=== PATIENT | female | born 1955 | race Caucasian/White ===

== ENCOUNTER 2019-05-30 07:37 | Inpatient (IN) | payer BC ==
[2019-05-30] MEDS ORDERED: Ondansetron 4 MG/2 ML SDV IVPUSH ONE (08:15)
[2019-05-30] MEDS ORDERED: Sodium Chloride 0.9% 1,000 ML IV SCH ×3 (08:15→10:45)
[2019-05-30] MEDS ORDERED: HYDROmorphone 0.5 MG/0.5 ML Syringe IVPUSH ONE ×2 (08:15→11:00)
--- NOTE | 2019-05-30 08:24 | EDM.PDOC ---
ED HPI GENERAL MEDICAL PROBLEM - General Chief Complaint: Abdominal Pain Stated Complaint: ABD PAIN Time Seen by Provider: 05/30/19 08:16 Source of Information: Reports: Patient History Limitations: Reports: No Limitations - History of Present Illness INITIAL COMMENTS - FREE TEXT/NARRATIVE: pt got sick in the nite . She vomited several times some very green looking material. Onset: Today, Other ( started in the middle of the nite. ) Duration: Hour(s): Location: Reports: Abdomen, Other ( severe upper abdomanal pain. ) Associated Symptoms: Reports: Headaches, Malaise, Nausea/Vomiting Upper Abdominal Pain Score (Numeric/FACES): 10 - Related Data Allergies Allergy/AdvReac Type Severity Reaction Status Date / Time No Known Allergies Allergy Verified 05/30/19 07:56 Past Medical History Gastrointestinal History: Reports: Other (See Below) Other Gastrointestinal History: abd pain Musculoskeletal History: Reports: Osteoporosis Neurological History: Reports: Migraines Social & Family History - Tobacco Use Smoking Status *Q: Never Smoker - Caffeine Use Caffeine Use: Reports: None ED ROS GENERAL - Review of Systems Review Of Systems: See Below Constitutional: Reports: Decreased Appetite HEENT: Reports: No Symptoms Respiratory: Reports: No Symptoms Cardiovascular: Reports: No Symptoms Endocrine: Reports: No Symptoms GI/Abdominal: Reports: Abdominal Pain, Nausea, Vomiting : Reports: No Symptoms Musculoskeletal: Reports: No Symptoms Neurological: Reports: Headache, Other (pt developed a migraine this am and she was not able to take her imitrex. ) Psychiatric: Reports: Anxiety Immunologic: Reports: No Symptoms ED EXAM, GI/ABD - Physical Exam Exam: See Below Text/Narrative:: pt arrived with pain in the upper abdoman of acute onset. At home she did vomit several times which was a dark green. Exam Limited By: No Limitations General Appearance: Alert, Anxious, Moderate Distress Ears: Normal TMs Nose: Normal Inspection Throat/Mouth: Normal Inspection Head: Atraumatic Neck: Normal Inspection Respiratory/Chest: No Respiratory Distress Cardiovascular: Regular Rate, Rhythm GI/Abdominal Exam: Other ( tender in the upper abdoman. ) (Female) Exam: Deferred Rectal (Female) Exam: Deferred Back Exam: Normal Inspection Extremities: Normal Inspection Neurological: Alert, Oriented, Normal Cognition Course - Vital Signs Last Recorded V/S: Last Vital Signs Temp 36.8 C 05/30/19 07:52 Pulse 81 05/30/19 07:52 Resp 20 05/30/19 07:52 BP 94/50 L 05/30/19 07:52 Pulse Ox - Orders/Labs/Meds Orders: Active Orders 24 hr Category Date Time Status UA W/MICROSCOPIC [URIN] Urgent Lab 05/30/19 07:54 Ordered Sodium Chloride 0.9% [Normal Saline] 1,000 ml Med 05/30/19 08:15 Active IV ASDIRECTED Sodium Chloride 0.9% [Normal Saline] 1,000 ml Med 05/30/19 09:00 Active IV ASDIRECTED Medication Orders Sodium Chloride (Normal Saline) 1,000 mls @ 999 mls/hr IV ASDIRECTED GIN Last Admin: 05/30/19 08:28 Dose: 999 mls/hr Sodium Chloride (Normal Saline) 1,000 mls @ 999 mls/hr IV ASDIRECTED GIN Last Admin: 05/30/19 09:45 Dose: 999 mls/hr Labs: Laboratory Tests 05/30/19 05/30/19 05/30/19 Range/Units 07:54 08:05 08:05 WBC 12.7 H (4.5-11.0) K/uL RBC 4.52 (3.30-5.50) M/uL Hgb 14.6 (12.0-15.0) g/dL Hct 44.4 (36.0-48.0) % MCV 98 (80-98) fL MCH 32 H (27-31) pg MCHC 33 (32-36) % Plt Count 302 (150-400) K/uL Neut % (Auto) 86 H (36-66) % Lymph % (Auto) 10 L (24-44) % [place] % (Auto) 4 (2-6) % Eos % (Auto) 0 L (2-4) % Baso % (Auto) 0 (0-1) % Sodium 134 L (140-148) mmol/L Potassium 4.0 (3.6-5.2) mmol/L Chloride 102 (100-108) mmol/L Carbon Dioxide 24 (21-32) mmol/L Anion Gap 12.0 (5.0-14.0) mmol/L BUN 31 H (7-18) mg/dL Creatinine 0.8 (0.6-1.0) mg/dL Est Cr Clr Drug Dosing 57.73 mL/min Estimated GFR (MDRD) > 60 (>60) Glucose 131 H (74-106) mg/dL Calcium 9.7 (8.5-10.1) mg/dL Total Bilirubin 0.3 (0.2-1.0) mg/dL AST 25 (15-37) U/L ALT 26 (12-78) U/L Alkaline Phosphatase 75 (46-116) U/L C-Reactive Protein 0.23 (0.0-0.3) mg/dL Total Protein 7.8 (6.4-8.2) g/dL Albumin 4.2 (3.4-5.0) g/dL Globulin 3.6 H (2.3-3.5) g/dL Albumin/Globulin Ratio 1.2 (1.2-2.2) Meds: Medications Generic Name Dose Route Start Last Admin Trade Name Cristin PRN Reason Stop Dose Admin Sodium Chloride 1,000 mls @ 999 mls/hr 05/30/19 08:15 05/30/19 08:28 Normal Saline IV 999 mls/hr ASDIRECTED GIN Administration Sodium Chloride 1,000 mls @ 999 mls/hr 05/30/19 09:00 05/30/19 09:45 Normal Saline IV 999 mls/hr ASDIRECTED GIN Administration Discontinued Medications Generic Name Dose Route Start Last Admin Trade Name Cristin PRN Reason Stop Dose Admin Hydromorphone HCl 0.5 mg 05/30/19 08:15 05/30/19 08:29 Dilaudid IVPUSH 05/30/19 08:16 0.5 mg ONETIME ONE Administration Sodium Chloride 70 mls @ 2 mls/sec 05/30/19 09:15 05/30/19 09:20 Normal Saline IV 05/30/19 09:16 2 mls/sec ASDIRECTED GIN Administration Iopamidol 72 ml 05/30/19 09:15 05/30/19 09:21 Isovue-300 (61%) IV 05/30/19 09:16 72 ml . DIRECTED GIN Administration Ondansetron HCl 4 mg 05/30/19 08:15 05/30/19 08:30 Zofran IVPUSH 05/30/19 08:16 4 mg ONETIME ONE Administration Sodium Chloride 10 ml 05/30/19 09:15 05/30/19 09:20 Saline Flush FLUSH 05/30/19 09:16 10 ml ONETIME GIN Administration - Re-Assessments/Exams Free Text/Narrative Re-Assessment/Exam: 05/30/19 09:46 wbc is mildly elevated. She has dilated loops of bowel with a partial bowel obstruction. Departure - Departure Time of Disposition: 09:56 Disposition: Home, Self-Care 01 Condition: Fair Clinical Impression: Partial bowel obstruction - Discharge Information Referrals: PCP,None [Primary Care Provider] - Forms: ED Department Discharge Care Plan Goals: admit to Dr Fregoso with a surgical consult with Dr ortiz. Sepsis Event Note - Evaluation Sepsis Screening Result: No Definite Risk - Focused Exam Vital Signs: Vital Signs Temp Pulse Resp BP 05/30/19 07:52 36.8 C 81 20 94/50 L Date Exam was Performed: 05/30/19 Time Exam was Performed: 10:10 - My Orders Last 24 Hours: My Active Orders 05/30/19 07:54 UA W/MICROSCOPIC [URIN] Urgent 05/30/19 08:15 Sodium Chloride 0.9% [Normal Saline] 1,000 ml IV ASDIRECTED 05/30/19 09:00 Sodium Chloride 0.9% [Normal Saline] 1,000 ml IV ASDIRECTED - Assessment/Plan Last 24 Hours: My Active Orders 05/30/19 07:54 UA W/MICROSCOPIC [URIN] Urgent 05/30/19 08:15 Sodium Chloride 0.9% [Normal Saline] 1,000 ml IV ASDIRECTED 05/30/19 09:00 Sodium Chloride 0.9% [Normal Saline] 1,000 ml IV ASDIRECTED
[2019-05-30] MEDS ORDERED: Iopamidol 612 MG/ML 100 ML Bottle IV SCH (09:15)
[2019-05-30] MEDS ORDERED: Sodium Chloride 0.9% 10 ML Syringe FLUSH SCH (09:15)
--- NOTE | 2019-05-30 09:58 | CT ---
Abdomen Pelvis w Cont CLINICAL HISTORY: Acute abdominal pain COMPARISON: None. TECHNIQUE: Axial tomographic images are obtained from the dome of the diaphragm to the pubic symphysis without IV contrast enhancement. No oral contrast was used. Auto dosage reduction and iterative reconstruction techniques employed. FINDINGS: The lung bases show some pleural parenchymal scarring and patchy atelectasis. The there is a 9 mm pleural-based nodular focus in the right posterior costophrenic angle. This may be part of what is described above. The solitary pulmonary nodule is not excluded.. The liver shows some mild intrahepatic biliary distention likely related to previous cholecystectomy. There is moderate to diffuse small bowel distention throughout the abdomen. There is a transition point seen in the left midabdomen. This is best demonstrated on coronal image #20. This is seen on axial images #64 through 76.. There is a small amount of free fluid in the pelvis. No free air is identified This appears to be in the distal jejunum The spleen has a normal size and shape. The pancreas shows no mass or inflammatory change. The adrenal glands appear normal bilaterally. The kidneys show no mass or hydronephrosis. There is a punctate nonobstructing stone in the lower pole of the right kidney. Ureters have normal course and caliber The aorta has a normal contour. There is no suspicious retroperitoneal adenopathy. Bladder has normal contour IMPRESSION: Moderate fluid-filled small bowel distention suggesting a high-grade obstruction. Transition point appears to be in the lower left midabdomen. Chronic changes in lung bases with a 9 mm pleural-based nodular focus in the right posterior costophrenic angle. CT chest follow-up on a nonemergent basis should be considered
--- NOTE | 2019-05-30 11:57 | PCM.HP.2 ---
H&P History of Present Illness - General Date of Service: 05/30/19 Admit Problem/Dx: Admission Diagnosis/Problem Admission Diagnosis/Problem Small bowel obstruction Source of Information: Patient, Provider History Limitations: Reports: No Limitations - History of Present Illness Initial Comments - Free Text/Narative: CC: I was hurting so bad HPI: Renetta presents to the emergency room today with progressive right-sided abdominal pain with nausea and vomiting. She reports onset of right-sided abdominal pain last night. There is a moderate ache that is present nearly constantly with sharp and severe wavelike episodes that radiate throughout the right side of her abdomen. She has had associated nausea and multiple episodes of vomiting which was green in color. No obvious trigger to make the pain worse but it has progressed throughout the night. She was not able to keep down any medications to try to make the pain better. She has not had any fevers. Nobody else had similar symptoms. Her bowel movements seem to alternate from constipation to diarrhea but this is unchanged from previous. She has a history of similar episodes but has not had one in quite some time. She does have mild abdominal pain essentially every day but this usually improves with her dicyclomine. She does not feel short of breath and has not had chest pain. No change in bladder habits. No recent travel or suspect food ingestions. For her chronic abdominal pain she has had an extensive work-up including a [facility] visit. She has had a cholecystectomy in the past. Her pain has been better for the last several years but still bothers her on a regular basis. Work-up in the emergency room revealed fairly normal labs. CT scan of the abdomen and pelvis was suggestive of a high-grade obstruction in the mid abdomen area. She is more comfortable after pain medications and fluids. She will be admitted for further management. Upper Abdominal Pain Score (Numeric/FACES): 7 - Related Data Allergies/Adverse Reactions: Allergies Allergy/AdvReac Type Severity Reaction Status Date / Time gluten Allergy Abdominal Verified 05/30/19 14:04 Pain onion Allergy Headache Verified 05/30/19 14:03 Home Medications: Home Meds Dicyclomine [Bentyl] 20 mg PO Q4H 05/30/19 [History] Fluticasone Furoate [Flonase Sensimist] 2 spray NASBOTH ASDIRECTED 05/30/19 [ History] Gabapentin [Neurontin] 300 mg PO BEDTIME 05/30/19 [History] Gabapentin [Neurontin] 600 mg PO DAILY 05/30/19 [History] QUEtiapine [SEROquel] 100 mg PO BEDTIME 05/30/19 [History] SUMAtriptan [Imitrex] 100 mg PO ASDIRECTED 05/30/19 [History] Past Medical History Gastrointestinal History: Reports: Other (See Below) Other Gastrointestinal History: abd pain Musculoskeletal History: Reports: Osteoporosis Neurological History: Reports: Migraines Social & Family History - Family History GI: Reports: Cholelithiasis. Denies: Bowel Obstruction - Tobacco Use Smoking Status *Q: Never Smoker - Caffeine Use Caffeine Use: Reports: None - Alcohol Use Alcohol Use History: No H&P Review of Systems - Review of Systems: Review Of Systems: See Below Free Text/Narrative: A complete 12 point review of systems was obtained. Pertinent positives and negatives are noted in the history of present illness. All other systems were reviewed and were negative except as noted. Exam - Exam Exam: See Below - Vital Signs Vital Signs: Last Vital Signs Temp 36.8 C 05/30/19 07:52 Pulse 81 05/30/19 07:52 Resp 20 05/30/19 07:52 BP 94/50 L 05/30/19 07:52 Pulse Ox Weight: 50.802 kg - Exam Quality Assessment: No: Supplemental Oxygen General: Alert, Oriented, Cooperative, Mild Distress HEENT: Conjunctiva Clear. No: Mucosa Moist & [place] (dry), Scleral Icterus Neck: Supple, Trachea Midline. No: Lymphadenopathy Lungs: Clear to Auscultation, Normal Respiratory Effort Cardiovascular: Regular Rate, Regular Rhythm GI/Abdominal Exam: Normal Bowel Sounds, Soft, No Distention, Guarding (LLQ), Tender (left side kaya LUQ) Extremities: Normal Inspection. No: Limited Range of Motion Peripheral Pulses: 2+: Dorsalis Pedis (L), Dorsalis Pedis (R) Skin: Warm, Dry Neuro Extensive - Mental Status: Alert, Oriented x3, Normal Mood/Affect Neuro Extensive - Motor, Sensory, Reflexes: No: Dysarthria, Abnormal Motor, Tremor Psychiatric: Alert, Normal Affect - Patient Data Lab Results Last 24 hrs: Laboratory Results - last 24 hr 05/30/19 05/30/19 05/30/19 Range/Units 07:54 08:05 08:05 WBC 12.7 H (4.5-11.0) K/uL RBC 4.52 (3.30-5.50) M/uL Hgb 14.6 (12.0-15.0) g/dL Hct 44.4 (36.0-48.0) % MCV 98 (80-98) fL MCH 32 H (27-31) pg MCHC 33 (32-36) % Plt Count 302 (150-400) K/uL Neut % (Auto) 86 H (36-66) % Lymph % (Auto) 10 L (24-44) % [place] % (Auto) 4 (2-6) % Eos % (Auto) 0 L (2-4) % Baso % (Auto) 0 (0-1) % Sodium 134 L (140-148) mmol/L Potassium 4.0 (3.6-5.2) mmol/L Chloride 102 (100-108) mmol/L Carbon Dioxide 24 (21-32) mmol/L Anion Gap 12.0 (5.0-14.0) mmol/L BUN 31 H (7-18) mg/dL Creatinine 0.8 (0.6-1.0) mg/dL Est Cr Clr Drug Dosing 57.73 mL/min Estimated GFR (MDRD) > 60 (>60) Glucose 131 H (74-106) mg/dL Calcium 9.7 (8.5-10.1) mg/dL Total Bilirubin 0.3 (0.2-1.0) mg/dL AST 25 (15-37) U/L ALT 26 (12-78) U/L Alkaline Phosphatase 75 (46-116) U/L C-Reactive Protein 0.23 (0.0-0.3) mg/dL Total Protein 7.8 (6.4-8.2) g/dL Albumin 4.2 (3.4-5.0) g/dL Globulin 3.6 H (2.3-3.5) g/dL Albumin/Globulin Ratio 1.2 (1.2-2.2) Urine Color (YELLOW) Urine Appearance (CLEAR) Urine pH (5.0-8.0) Ur Specific [place] (1.008-1.030) Urine Protein (NEGATIVE) mg/dL Urine Glucose (UA) (NEGATIVE) mg/dL Urine Ketones (NEGATIVE) mg/dL Urine Occult Blood (NEGATIVE) Urine Nitrite (NEGATIVE) Urine Bilirubin (NEGATIVE) Urine Urobilinogen (0.2-1.0) EU/dL Ur Leukocyte Esterase (NEGATIVE) Urine RBC (0-5) Urine WBC (0-5) Ur Epithelial Cells Amorphous Sediment Urine Bacteria Urine Mucus 05/30/19 Range/Units 10:38 WBC (4.5-11.0) K/uL RBC (3.30-5.50) M/uL Hgb (12.0-15.0) g/dL Hct (36.0-48.0) % MCV (80-98) fL MCH (27-31) pg MCHC (32-36) % Plt Count (150-400) K/uL Neut % (Auto) (36-66) % Lymph % (Auto) (24-44) % [place] % (Auto) (2-6) % Eos % (Auto) (2-4) % Baso % (Auto) (0-1) % Sodium (140-148) mmol/L Potassium (3.6-5.2) mmol/L Chloride (100-108) mmol/L Carbon Dioxide (21-32) mmol/L Anion Gap (5.0-14.0) mmol/L BUN (7-18) mg/dL Creatinine (0.6-1.0) mg/dL Est Cr Clr Drug Dosing mL/min Estimated GFR (MDRD) (>60) Glucose (74-106) mg/dL Calcium (8.5-10.1) mg/dL Total Bilirubin (0.2-1.0) mg/dL AST (15-37) U/L ALT (12-78) U/L Alkaline Phosphatase (46-116) U/L C-Reactive Protein (0.0-0.3) mg/dL Total Protein (6.4-8.2) g/dL Albumin (3.4-5.0) g/dL Globulin (2.3-3.5) g/dL Albumin/Globulin Ratio (1.2-2.2) Urine Color Yellow (YELLOW) Urine Appearance Clear (CLEAR) Urine pH 6.0 (5.0-8.0) Ur Specific [place] 1.015 (1.008-1.030) Urine Protein Negative (NEGATIVE) mg/dL Urine Glucose (UA) Negative (NEGATIVE) mg/dL Urine Ketones Negative (NEGATIVE) mg/dL Urine Occult Blood Negative (NEGATIVE) Urine Nitrite Negative (NEGATIVE) Urine Bilirubin Negative (NEGATIVE) Urine Urobilinogen 0.2 (0.2-1.0) EU/dL Ur Leukocyte Esterase Negative (NEGATIVE) Urine RBC 0-5 (0-5) Urine WBC 0-5 (0-5) Ur Epithelial Cells Few Amorphous Sediment Not seen Urine Bacteria Moderate Urine Mucus Few Result Diagrams: 05/30/19 07:54 05/30/19 08:05 Imaging Impressions Last 24 hrs: CT Abd/Pelvis-images personally reviewed-probable high grade sbo with transition point in the left mid abdomen. dilated loops of small bowel throughout abdomen. s/p cholecystectomy Sepsis Event Note - Evaluation Sepsis Screening Result: No Definite Risk - Focused Exam Vital Signs: Vital Signs Temp Pulse Resp BP 05/30/19 07:52 36.8 C 81 20 94/50 L Date Exam was Performed: 05/30/19 Time Exam was Performed: 14:28 - Problem List (1) Small bowel obstruction SNOMED Code(s): 797034748 ICD Code: K56.609 - UNSP INTESTNL OBST, UNSP TO PARTIAL VERSUS COMPLETE OBST Status: Acute Current Visit: Yes (2) Hx of migraine headaches SNOMED Code(s): 207787502 ICD Code: Z86.69 - PERSONAL HISTORY OF DIS OF THE NERVOUS SYS AND SENSE ORGANS Status: Chronic Current Visit: Yes Problem List Initiated/Reviewed/Updated: Yes Orders Last 24hrs: Active Orders 24 hr Category Date Time Status Patient Status Manage Transfer [TRANSFER] Routine ADT 05/30/19 11:49 Ordered Sodium Chloride 0.9% [Normal Saline] 1,000 ml Med 05/30/19 08:15 Active IV ASDIRECTED Sodium Chloride 0.9% [Normal Saline] 1,000 ml Med 05/30/19 09:00 Active IV ASDIRECTED Sodium Chloride 0.9% [Normal Saline] 1,000 ml Med 05/30/19 10:45 Active IV ASDIRECTED Resuscitation Status Routine Resus Stat 05/30/19 11:50 Ordered Medication Orders Sodium Chloride (Normal Saline) 1,000 mls @ 999 mls/hr IV ASDIRECTED GIN Last Admin: 05/30/19 08:28 Dose: 999 mls/hr Sodium Chloride (Normal Saline) 1,000 mls @ 999 mls/hr IV ASDIRECTED [facility] Last Admin: 05/30/19 09:45 Dose: 999 mls/hr Sodium Chloride (Normal Saline) 1,000 mls @ 250 mls/hr IV ASDIRECTED [facility] Last Admin: 05/30/19 10:54 Dose: 250 mls/hr Assessment/Plan Comment:: ASSESSMENT AND PLAN - Small bowel obstruction-CT scan suggested high-grade obstruction. Patient does have a history of chronic episodic abdominal pain and it is not clear if this is a separate entity or if this is related. She may have an intermittent obstruction that comes and goes leading to her pain. No evidence for infection. No history of inflammatory bowel disease. She has had previous abdominal surgery including cholecystectomy. -IV fluids -Pain and nausea management -Flat and upright in the morning -NG tube if there is additional vomiting -Surgical consultation in the morning or if condition deteriorates -Nothing by mouth Chronic migraines-headache pattern has been stable. -Imitrex as needed -Continue gabapentin Maintenance issues - - DVT prophylaxis -mechanical - GI prophylaxis -PPI - Nutrition -nothing by mouth - Gallego catheter -not indicated CODE STATUS -full code this patient will be admitted for inpatient services and is medically appropriate meeting medical necessity for inpatient admission as outlined in my documentation. I reasonably expect the patient will require inpatient services that span a period time over 2 midnights. I reasonably expect this patient to be discharged or transferred within 96 hours [facility]. Admission justification - Disposition -I would anticipate discharge home after the hospital stay Primary care physician - [facility] Tyrone Fregoso M.D. - Mortality Measure Prognosis:: Good
[2019-05-30] MEDS ORDERED: SUMATRIPTAN 100 MG PO PRN (13:27)
[2019-05-30] MEDS ORDERED: Acetaminophen 650 MG Supp RECTAL PRN (13:27)
[2019-05-30] MEDS ORDERED: Acetaminophen 325 MG Tab PO PRN (13:27)
[2019-05-30] MEDS ORDERED: Ondansetron 4 MG Tab.DIS PO PRN (13:27)
[2019-05-30] MEDS ORDERED: LORazepam 2 MG/ML SDV IVPUSH PRN (13:27)
[2019-05-30] MEDS: HYDROmorphone 0.5 MG/0.5 ML Syringe IVPUSH PRN ×2 (14:23→17:21)
[2019-05-30] MEDS: Ondansetron 4 MG/2 ML SDV IV PRN ×2 (14:25→20:43)
[2019-05-30] MEDS ORDERED: Pantoprazole 40 MG Vial IV SCH (15:00)
[2019-05-30] MEDS: Dextrose 5%-Lactated Ringers 1,000 ML IV SCH (16:32)
[2019-05-30] MEDS ORDERED: QUEtiapine 100 MG Tab PO SCH (21:00)
[2019-05-30] MEDS ORDERED: Gabapentin 300 MG Cap PO SCH (21:00)
[2019-05-31] MEDS: Dextrose 5%-Lactated Ringers 1,000 ML IV SCH (01:53)
--- NOTE | 2019-05-31 08:44 | CR ---
Abdomen 2V AP Flat Upright CLINICAL HISTORY: SBO FINDINGS: Small bowel configuration is nonacute. There is gas and feces in the right colon. No free air is identified. There are surgical clips in the right upper quadrant. IMPRESSION: Previously seen small bowel obstruction has resolved Moderate fecal retention right colon
[2019-05-31] MEDS ORDERED: Gabapentin 300 MG Cap PO SCH (09:00)
--- NOTE | 2019-05-31 10:26 | CONS ---
DATE OF SERVICE: 05/31/2019 REFERRING PHYSICIAN: CONSULTING PHYSICIAN: Mellissa Scott PA-C HISTORY: Renetta is hospitalized for a partial small bowel obstruction. She states that she has been hospitalized three times over the past several years. She does have a lot of trouble eating. She sees a GI specialist, is on dicyclomine for abdominal pain, but she does not like the side effects, which makes her sleepy. She presented to the emergency room on 05/30/2019, with progressive right-sided abdominal pain associated with nausea and vomiting. Since she has been admitted, she has had no vomiting. Bowel movements alternate between diarrhea and constipation. She does follow a gluten-free diet and stays away from the foods that trigger her migraine headaches. She has had extensive workups done at [facility], as well as [facility]. Abdominal surgeries include a cholecystectomy, and she has had surgery on her bile duct. CT in the emergency room was suggestive of a high-grade obstruction in the mid abdomen. This morning, she states her pain is better, and she has had one small bowel movement and is passing flatus. REVIEW OF SYSTEMS: CONSTITUTIONAL: Weight is stable. Denies any fever, chills, night sweats, or fatigue. HEENT: Negative. NECK: Negative. Supple. Full range of motion. HEART: No chest pain, shortness of breath, fast or irregular heartbeats. LUNGS: No cough. ABDOMEN: As above. : Negative for UTI signs and symptoms. EXTREMITIES: No joint pain or swelling. NEURO: Negative for any loss of coordination. Frequent migraine headaches, been chronic. PSYCHIATRIC: Negative. ALLERGIES: TO GLUTEN AND ONION. HOME MEDICATIONS: Bentyl 20 mg p.o. every 4 hours p.r.n. abdominal pain, Flonase 2 sprays in each nostril once daily, Neurontin 600 mg p.o. daily and 300 mg at bedtime, Seroquel 100 mg oral at bedtime, and Imitrex 100 mg p.o. as directed for migraine headaches. PAST MEDICAL HISTORY: Includes osteoporosis, migraine headaches. FAMILY HISTORY: Positive for her mom who had pancreatic cancer. No diabetes, hypertension, heart disease, lung disease, colon or breast cancer. 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 Has a home in [place] as well as [facility]. Does not smoke. Coffee, drinks 1 to 2 cups a day. Alcohol use, occasionally. Soda, negative. PHYSICAL EXAMINATION: GENERAL: Renetta Wilburn is a 64-year-old female. VITAL SIGNS: Height is 5 feet 5 inches. Weight is 112 pounds. BMI is 18.6. TPR is 96.8, 59, 16, and blood pressure 91/57. HEENT: Negative. NECK: Supple. HEART: Regular rate and rhythm. LUNGS: Clear. ABDOMEN: Soft, flat, and nontender. She states when she does have tenderness, it is in the mid-epigastric area. : Deferred. EXTREMITIES: Full range of motion. NEURO: Cranial nerves II through XII intact. PSYCHIATRIC: Mood and affect appropriate. ASSESSMENT: 1. Partial small bowel obstruction. 2. History of migraine headaches. PLAN: 1. Full liquid diet. 2. Dietary consult. Brett Gomez MD, would like the patient on a full liquid diet for 2 weeks, and she is concerned about losing more weight. 3. Continue with IV fluids and if pain does not come back, will discharge in a.m. Thank you for this consult. Mellissa Scott PA-C /[phone]
--- NOTE | 2019-05-31 10:50 | PCM.DCSUM1 ---
Discharge Summary - Hospital Course Brief History: 64-year-old female with history of chronic migraines and chronic intermittent abdominal pain who presented with acute abdominal pain with nausea and vomiting. Work-up in the emergency room was concerning for a small bowel obstruction and she was admitted for further management. Diagnosis: Stroke: No - Discharge Data Discharge Date: 05/31/19 Discharge Disposition: Home, Self-Care 01 Condition: Good - Referral to Home Health Primary Care Physician: PCP None - Discharge Diagnosis/Problem(s) (1) Small bowel obstruction SNOMED Code(s): 018622731 ICD Code: K56.609 - UNSP INTESTNL OBST, UNSP TO PARTIAL VERSUS COMPLETE OBST Status: Acute (2) Hx of migraine headaches SNOMED Code(s): 924970878 ICD Code: Z86.69 - PERSONAL HISTORY OF DIS OF THE NERVOUS SYS AND SENSE ORGANS Status: Chronic - Patient Summary/Data Consults: Consultations 05/30/19 13:27 Consult to Physician [CONS] Routine Consulting Provider: Brett Gomez Courtesy Call Completed to Consulting Physician: Yes Reason for Consult: SBO Person Notified: PEDRO Date Notified: 05/30/19 Special Instructions: will see in am 05/31/19 07:21 Consult to Ditch Tender [CONS] Routine Comment: Physician Instructions: Quantity: Reason for Consult: full liquid diet for 2 weeks. pt concerned about wt loss Special Instructions: gluten free and has foods she can't eat that triger her migraines Hospital Course: Renetta presented to the emergency room with acute right-sided abdominal pain. Laboratory studies were fairly unremarkable but CT scan suggested high-grade bowel obstruction. Patient received IV fluids and pain control in the emergency room and was admitted for further management. She did have a bowel movement shortly after admission. There were no acute events overnight. The morning after admission she had a repeat flat and upright x-ray which showed resolution of the bowel obstruction. Patient feels back to her usual self at this point. She tolerated full liquids with no increase in her pain and she did not have any nausea, vomiting or pain overnight. She is interested in going home since she feels back to her usual self and tolerated her diet. I believe she is safe for discharge home at this point. She is going to maintain a soft, bland and boring diet which is pretty close to what she normally consumes. She will be following up of her symptoms return or do not continue to get better. At the time of presentation I suspected that the small bowel obstruction was severe enough that she would require a hospitalization spanning at least 2 midnights. The patient improved much faster than expected and is ready for discharge to home after only 1 night in the hospital. - Patient Instructions Diet: Mechanical Soft Activity: As Tolerated Showering/Bathing: May Shower Notify Provider of: Fever, Increased Pain, Nausea and/or Vomiting - Discharge Plan *PRESCRIPTION DRUG MONITORING PROGRAM REVIEWED*: Not Applicable *COPY OF PRESCRIPTION DRUG MONITORING REPORT IN PATIENT DIAMOND: Not Applicable Home Medications: Home Meds Dicyclomine [Bentyl] 20 mg PO Q4H 05/30/19 [History] Fluticasone Furoate [Flonase Sensimist] 2 spray NASBOTH ASDIRECTED 05/30/19 [ History] Gabapentin [Neurontin] 300 mg PO BEDTIME 05/30/19 [History] Gabapentin [Neurontin] 600 mg PO DAILY 05/30/19 [History] QUEtiapine [SEROquel] 100 mg PO BEDTIME 05/30/19 [History] SUMAtriptan [Imitrex] 100 mg PO ASDIRECTED 05/30/19 [History] Oxygen Therapy Mode: Room Air Patient Handouts: Soft-Food Eating Plan Referrals: PCP,None [Primary Care Provider] - (f/u as needed if your symptoms get worse or do not continue to get better ) - Discharge Summary/Plan Comment DC Time >30 min.: No - Patient Data Vitals - Most Recent: Last Vital Signs Temp 36.0 C L 05/31/19 07:00 Pulse 59 L 05/31/19 07:00 Resp 16 05/31/19 07:00 BP 91/57 L 05/31/19 07:00 Pulse Ox 93 L 05/31/19 07:00 Weight - Most Recent: 50.802 kg I&O - Last 24 hours: Intake & Output 05/30/19 05/31/19 05/31/19 22:59 06:59 14:59 Intake Total 3061 Output Total 250 500 500 Balance 2811 -500 -500 Lab Results - Last 24 hrs: Laboratory Results - last 24 hr 05/30/19 05/31/19 05/31/19 Range/Units 10:38 04:06 04:06 WBC 6.1 (4.5-11.0) K/uL RBC 3.54 (3.30-5.50) M/uL Hgb 11.3 L D (12.0-15.0) g/dL Hct 35.8 L (36.0-48.0) % MCV 101 H (80-98) fL MCH 32 H (27-31) pg MCHC 32 (32-36) % Plt Count 223 (150-400) K/uL Sodium 143 (140-148) mmol/L Potassium 4.0 (3.6-5.2) mmol/L Chloride 111 H (100-108) mmol/L Carbon Dioxide 24 (21-32) mmol/L Anion Gap 12.0 (5.0-14.0) mmol/L BUN 15 D (7-18) mg/dL Creatinine 0.6 (0.6-1.0) mg/dL Est Cr Clr Drug Dosing 76.97 mL/min Estimated GFR (MDRD) > 60 (>60) Glucose 111 H (74-106) mg/dL Calcium 7.7 L D (8.5-10.1) mg/dL Urine Color Yellow (YELLOW) Urine Appearance Clear (CLEAR) Urine pH 6.0 (5.0-8.0) Ur Specific [place] 1.015 (1.008-1.030) Urine Protein Negative (NEGATIVE) mg/dL Urine Glucose (UA) Negative (NEGATIVE) mg/dL Urine Ketones Negative (NEGATIVE) mg/dL Urine Occult Blood Negative (NEGATIVE) Urine Nitrite Negative (NEGATIVE) Urine Bilirubin Negative (NEGATIVE) Urine Urobilinogen 0.2 (0.2-1.0) EU/dL Ur Leukocyte Esterase Negative (NEGATIVE) Urine RBC 0-5 (0-5) Urine WBC 0-5 (0-5) Ur Epithelial Cells Few Amorphous Sediment Not seen Urine Bacteria Moderate Urine Mucus Few Med Orders - Current: Current Medications Acetaminophen (Tylenol) 650 mg PO Q4H PRN PRN Reason: Pain (Mild 1-3)/fever Acetaminophen (Tylenol) 650 mg RECTAL Q4H PRN PRN Reason: Mild pain/fever Gabapentin (Neurontin) 300 mg PO BEDTIME [facility] Last Admin: 05/30/19 20:00 Dose: 300 mg Gabapentin (Neurontin) 600 mg PO DAILY [facility] Last Admin: 05/31/19 08:52 Dose: 600 mg Hydromorphone HCl (Dilaudid) 0.5 mg IVPUSH Q2H PRN PRN Reason: PAIN Last Admin: 05/30/19 17:21 Dose: 0.5 mg Dextrose/Lactated Ringer's (Dextrose 5%-Lactated Ringers) 1,000 mls @ 100 mls/ hr IV ASDIRECTED [facility] Last Admin: 05/31/19 01:53 Dose: 100 mls/hr Lorazepam (Ativan) 0.5 mg IVPUSH Q4H PRN PRN Reason: Nausea/Vomiting Last Admin: 05/30/19 18:34 Dose: 0.5 mg Ondansetron HCl (Zofran Odt) 4 mg PO Q6H PRN PRN Reason: Nausea able to take PO Ondansetron HCl (Zofran) 4 mg IV Q6H PRN PRN Reason: Nausea/Vomiting Last Admin: 05/30/19 20:43 Dose: 4 mg Pantoprazole Sodium (Protonix Iv) 40 mg IV Q24H [facility] Last Admin: 05/30/19 14:28 Dose: 40 mg Quetiapine Fumarate (Seroquel) 100 mg PO BEDTIME [facility] Last Admin: 05/30/19 20:00 Dose: 100 mg Sumatriptan Succinate (Sumatriptan) 100 mg PO DAILY PRN PRN Reason: HEADACHE Last Admin: 05/30/19 14:22 Dose: 100 mg Discontinued Medications Hydromorphone HCl (Dilaudid) 0.5 mg IVPUSH ONETIME ONE Stop: 05/30/19 08:16 Last Admin: 05/30/19 08:29 Dose: 0.5 mg Hydromorphone HCl (Dilaudid) 0.5 mg IVPUSH ONETIME ONE Stop: 05/30/19 11:01 Last Admin: 05/30/19 11:06 Dose: 0.5 mg Sodium Chloride (Normal Saline) 1,000 mls @ 999 mls/hr IV ASDIRECTED [facility] Last Admin: 05/30/19 08:28 Dose: 999 mls/hr Sodium Chloride (Normal Saline) 1,000 mls @ 999 mls/hr IV ASDIRECTED [facility] Last Admin: 05/30/19 09:45 Dose: 999 mls/hr Sodium Chloride (Normal Saline) 70 mls @ 2 mls/sec IV ASDIRECTED [facility] Stop: 05/30/19 09:16 Last Admin: 05/30/19 09:20 Dose: 2 mls/sec Sodium Chloride (Normal Saline) 1,000 mls @ 250 mls/hr IV ASDIRECTED [facility] Last Admin: 05/30/19 10:54 Dose: 250 mls/hr Iopamidol (Isovue-300 (61%)) 72 ml IV . DIRECTED GIN Stop: 05/30/19 09:16 Last Admin: 05/30/19 09:21 Dose: 72 ml Ondansetron HCl (Zofran) 4 mg IVPUSH ONETIME ONE Stop: 05/30/19 08:16 Last Admin: 05/30/19 08:30 Dose: 4 mg Sodium Chloride (Saline Flush) 10 ml FLUSH ONETIME GIN Stop: 05/30/19 09:16 Last Admin: 05/30/19 09:20 Dose: 10 ml - Exam Quality Assessment: Denies: Supplemental Oxygen General: Reports: Alert, Oriented, Cooperative, No Acute Distress Cardiovascular: Reports: Regular Rate, Regular Rhythm GI/Abdominal Exam: Soft, No Distention Extremities: No Pedal Edema Psy/Mental Status: Reports: Alert, Normal Affect
== END 2019-05-31 12:11 | disposition home or self-care (01) | DRG 247 ==
LOC: JP.ED 07:37 → JP.MS 11:49
PROVIDERS: ADMIT Internal Medicine; ATTEND Internal Medicine
DX: K56.600 Partial intestinal obstruction, unspecified as to cause (principal); G43.909 Migraine, unspecified, not intractable, without status migrainosus; M81.0 Age-related osteoporosis without current pathological fracture; Z91.018 Allergy to other foods; Z79.899 Other long term (current) drug therapy; Z80.8 Family history of malignant neoplasm of other organs or systems
CPT/HCPCS: 36415; 74019; 74019-26; 74177; 74177-26; 80048; 80053; 81001; 85025; 85027; 86140; 96361; 96374; 96375; 96376; 99285-25; A9270-GY; C9113; J1170; J2060; J2405; J7030; J7050; J7121; Q9967

== ENCOUNTER 2024-01-20 10:55 | Emergency (ER) | payer MEDICARE, OTHER ==
[2024-01-20 11:45] LABS: APPEARANCE,URINE CLEAR (CLEAR); BILIRUBIN,URINE NEGATIVE (NEGATIVE); COLOR,URINE YELLOW (YELLOW); GLUCOSE,URINE NEGATIVE (NEGATIVE); KETONES,URINE NEGATIVE (NEGATIVE); LEUKOCYTE ESTERASE,URINE SMALL (NEGATIVE); NITRITE,URINE NEGATIVE (NEGATIVE); OCCULT BLOOD,URINE TRACE-INTACT (NEGATIVE); PH,URINE 6.5 (5.0-8.0); PROTEIN,URINE NEGATIVE (NEGATIVE); UROBILINOGEN,URINE 0.2 EU/dL (0.2-1.0)
[2024-01-20 11:57] LABS: AMORPHOUS SEDIMENT,URINE NOT SEEN; BACTERIA,URINE FEW; EPITHELIAL CELLS,URINE NOT SEEN; MUCUS,URINE NOT SEEN; RBC,URINE 0-5 (0-5)
[2024-01-20] MEDS: Sodium Chloride 0.9% 1,000 ML IV STA (13:36)
[2024-01-20] MEDS: Sodium Chloride 0.9% 10 ML Syringe FLUSH PRN ×2 (13:36→15:16)
[2024-01-20] MEDS: Ketorolac 30 MG/ML SDV IVPUSH ONE (13:36)
[2024-01-20 13:42] LABS: BASOPHILS ABSOLUTE AUTO 0.04 K/uL (0.00-0.10); BASOPHILS PERCENT AUTO 0.4 % (0.1-1.3); EOSINOPHILS ABSOLUTE AUTO 0.08 K/uL (0.00-0.40); EOSINOPHILS PERCENT AUTO 0.7 % (0.0-5.4); HEMATOCRIT 40.7 % (34.3-46.0); HEMOGLOBIN 13.8 g/dL (11.2-15.5); IMMATURE GRAN ABSOLUTE AUTO 0.07 K/uL (0.00-0.23); IMMATURE GRAN PERCENT AUTO 0.6 % (0.0-0.7); LYMPHOCYTES ABSOLUTE AUTO 1.83 K/uL (0.8-3.3); LYMPHOCYTES PERCENT AUTO 16.8 % (11.4-47.7); MEAN CORPUSCULAR HEMOGLOBIN 32.3 pg (31.6-35.5); MEAN CORPUSCULAR HGB CONC 33.9 g/dL (31.6-35.5); MEAN CORPUSCULAR VOLUME 95.3 fL (81.4-99.0); MONOCYTES ABSOLUTE AUTO 1.39 K/uL (0.20-0.90); MONOCYTES PERCENT AUTO 12.8 % (3.3-12.6); NEUTROPHILS ABSOLUTE AUTO 7.47 K/uL (1.0-7.6); NEUTROPHILS PERCENT AUTO 68.7 % (40.0-78.1); PLATELET COUNT,PLT 224 K/uL (130-375); RED BLOOD CELL COUNT 4.27 M/uL (3.77-5.24); WHITE BLOOD CELL COUNT,WBC 10.9 K/uL (3.2-11.0)
[2024-01-20 14:07] LABS: A/G RATIO 0.7 (1.2-2.2); ALANINE AMINOTRANSFERASE,ALT 26 U/L (12-78); ALKALINE PHOSPHATASE 120 U/L (46-116); ASPARTATE AMNIOTRANSFERASE,AST 20 U/L (15-37); BILIRUBIN TOTAL 0.3 mg/dL (0.2-1.0); BLOOD UREA NITROGEN,BUN 13 mg/dL (7-18); CALCIUM 9.2 mg/dL (8.5-10.1); CARBON DIOXIDE,CO2 27 mmol/L (21-32); CHLORIDE,CL 103 mmol/L (100-108); CREATININE 0.7 mg/dL (0.6-1.0); EST CRCL DRUG DOSING (CG) 67.34 mL/min; ESTIMATED GFR 95 mL/min (>60); GLUCOSE RANDOM 98 mg/dL (74-106); POTASSIUM,K 3.8 mmol/L (3.6-5.2); PROTEIN TOTAL,TP 7.1 g/dL (6.4-8.2); SODIUM,NA 139 mmol/L (140-148)
[2024-01-20 14:08] LABS: ANION GAP 12.8 mmol/L (5.0-14.0)
[2024-01-20] MEDS: Iopamidol 612 MG/ML 100 ML Bottle IV SCH (15:16)
[2024-01-20] MEDS: Sodium Chloride 0.9% 100 ML IV SCH (15:16)
[2024-01-20] MEDS: HYDROmorphone 0.5 MG/0.5 ML Syringe IVPUSH ONE (16:02)
[2024-01-20] MEDS: cefTRIAXone 2 GM in Sodium Chloride 0.9% 50 ML IV ONE (16:48)
== END 2024-01-20 17:42 | disposition home or self-care (01) ==
LOC: JP.ED 10:55
DX: N20.0 Calculus of kidney (principal); Z87.891 Personal history of nicotine dependence; Z90.49 Acquired absence of other specified parts of digestive tract; Z90.710 Acquired absence of both cervix and uterus; Z79.51 Long term (current) use of inhaled steroids; Z79.899 Other long term (current) drug therapy; Z91.018 Allergy to other foods
CPT/HCPCS: 36415; 74177; 80053; 81001; 83605; 83690; 84145; 85025; 87086; 87088; 87186; 96365; 96375; 99284; J0696; J1171; J1885; J3490; J7030; Q9967

== ENCOUNTER 2024-01-23 13:11 | Emergency (ER) | payer MEDICARE, OTHER | END 2024-01-23 14:38 | disposition left against medical advice (07) | LOC: JP.ED 13:11 | DX: Z53.21 Procedure and treatment not carried out due to patient leaving prior to being seen by health care provider (principal) ==